=== PATIENT | female | born 1950 | race African-American/Black ===

== ENCOUNTER 2019-05-18 03:02 | Emergency (ER) | payer OTHER ==
[~2019-05-18] VITALS: Ht 162.6 cm; Wt 65.0 kg
[2019-05-18] MEDS ORDERED: MORPHINE SULFATE 4 MG/ML CPJ (NOT FOR IM USE) IV STA (03:18)
[2019-05-18] MEDS ORDERED: SODIUM CHLORIDE 0.9% 1,000 ML IV ONE (03:18)
[2019-05-18] MEDS ORDERED: ONDANSETRON HCL 4MG/2ML INJ IV STA (03:18)
[2019-05-18 03:46] LABS: BASOPHILS % 0.2 % (0.0-2.0); CHLORIDE 95 mEq/L (98-107); HEMATOCRIT. 44.2 % (36.0-48.0); HEMOGLOBIN. 15.4 g/dL (12.0-16.0); LYMPHOCYTES % 14.8 % (20.0-50.0); MEAN CORPUSCULAR HEMOGLOBIN 31.8 pg (28.0-32.0); MEAN CORPUSCULAR VOLUME 91.4 fL (81.0-99.0); MEAN PLATELET VOLUME 8.3 fl (7.4-10.4); MONOCYTES % 5.9 % (2.0-8.0); NEUTROPHILS % 79.1 % (40.0-76.0); PLATELET 377 x1000/uL (130-400); RED BLOOD CELL COUNT 4.84 mill/uL (4.2-5.4); RED CELL DISTRIBUTION WIDTH 14.2 % (11.6-14.6)
[2019-05-18 03:52] LABS: ETHANOL BLOOD < 10 mg/dL
[2019-05-18 07:30] VITALS: BP 155/80
== END 2019-05-18 09:26 | disposition short-term general hospital (02) ==
LOC: ER 03:02
DX: R10.13 Epigastric pain (principal); E11.9 Type 2 diabetes mellitus without complications; I10 Essential (primary) hypertension; F17.210 Nicotine dependence, cigarettes, uncomplicated
CPT/HCPCS: 36415; 71045; 74176; 80053; 80320; 82962; 83690; 83880; 84484; 85025; 93005; 96374; 96375; 99285; J2270; J2405; J7030; G0480

== ENCOUNTER 2020-02-17 04:09 | Emergency (ER) | payer OTHER ==
[~2020-02-17] VITALS: Ht 170.2 cm; Wt 77.0 kg
[2020-02-17] MEDS ORDERED: KETOROLAC 15MG/ML VIAL IV ONE (04:30)
[2020-02-17] MEDS ORDERED: ONDANSETRON HCL 4MG/2ML INJ IV ONE ×2 (04:30→10:00)
[2020-02-17 05:03] LABS: BASOPHILS % 0.4 % (0.0-2.0); EOSINOPHILS % 0.1 % (0.0-5.0); HEMATOCRIT. 40.1 % (36.0-48.0); HEMOGLOBIN. 13.9 g/dL (12.0-16.0); LYMPHOCYTES % 15.3 % (20.0-50.0); MEAN CORPUSCULAR VOLUME 89.3 fL (81.0-99.0); MEAN PLATELET VOLUME 8.3 fl (7.4-10.4); MONOCYTES % 4.5 % (2.0-8.0); NEUTROPHILS % 79.7 % (40.0-76.0); PLATELET 276 x1000/uL (130-400); RED CELL DISTRIBUTION WIDTH 13.5 % (11.6-14.6)
[2020-02-17 05:10] LABS: CHLORIDE 99 mEq/L (98-107)
[2020-02-17] MEDS ORDERED: POTASSIUM CHLORIDE 20MEQ/PACKET PO ONE (05:30)
[2020-02-17 05:38] LABS: CLARITY URINE CLEAR (CLEAR); COLOR URINE YELLOW (YELLOW); KETONES URINE NEGATIVE (NEGATIVE); LEUKOCYTE ESTERASE URINE NEGATIVE (NEGATIVE); NITRITE URINE NEGATIVE (NEGATIVE); OCCULT BLOOD URINE NEGATIVE (NEGATIVE); PROTEIN URINE 2+ (NEGATIVE); SPECIFIC GRAVITY URINE 1.016 (1.005-1.030); UROBILINOGEN URINE 0.2 E.U./dL (0.2-1.0)
[2020-02-17] MEDS ORDERED: IOHEXOL-300 100 ML BOTTLE ONE (06:00)
[2020-02-17] MEDS ORDERED: SODIUM CHLORIDE 0.9% 1,000 ML IV ONE (06:45)
[2020-02-17] MEDS ORDERED: KCL 20MEQ/100ML PREMIX 100 ML IV ONE (06:45)
[2020-02-17 09:40] VITALS: BP 168/87
== END 2020-02-17 09:44 | disposition short-term general hospital (02) ==
LOC: ER 04:09
DX: K56.609 Unspecified intestinal obstruction, unspecified as to partial versus complete obstruction (principal); E11.65 Type 2 diabetes mellitus with hyperglycemia; I10 Essential (primary) hypertension; M19.90 Unspecified osteoarthritis, unspecified site; Z96.659 Presence of unspecified artificial knee joint
CPT/HCPCS: 36415; 71045; 74177; 80053; 81003; 83690; 85025; 96365; 96366; 96375; 96376; 99285; J1885; J2405; J3480; J7030; Q9967